=== PATIENT | male | born 1980 | race Caucasian/White ===

== ENCOUNTER 2020-07-28 09:51 | Emergency (ER) | payer BC, SELFPAY ==
[2020-07-28 10:08] VITALS: BP 118/74; PULSE 78; RESP 16; TEMP 37.1; O2SAT 98
--- NOTE | 2020-07-28 10:09 | ED.CHESTPAIN ---
HPI - Chest Pain General Chief Complaint: Chest Pain Stated Complaint: Chest pain/nerves Time Seen by Provider: 07/28/20 10:09 Source: patient and RN notes reviewed History of Present Illness HPI narrative: Patient is a 40-year-old male who presents the urgent care with complaints of chest pain since last night. Patient states that he was not doing anything out of the ordinary and denies any recent strenuous activity but believes that his pain may be muscular pain . Patient states that he was told by friends to get it checked out due to his uncle passing away from several heart attacks at the age of 39. Patient denies of any personal history of chest pain. Denies of any shortness of breath. Patient does appear to be very anxious and does admit to having a history of ADHD and anxiety but [facility] . Patient is currently not being treated for either the ADHD or his anxiety. Patient denies any palpitations. Denies any B recent illness or sickness. Denies of any use of illicit drugs or alcohol. States that he took ibuprofen for the pain. No other acute complaints. No acute distress noted. Patient read the plan of care. Review of Systems Review of Systems: Narrative: CONSTITUTIONAL: Denies fever, chills, or sweats. EYES: Denies visual changes, redness, or discharge. ENT: Denies rhinorrhea, congestion, sore throat, or otalgia. CARDIOVASCULAR: Reports of chest pain without palpitations RESPIRATORY: Denies cough or dyspnea. GASTROINTESTINAL: Denies abdominal pain, nausea, vomiting, or diarrhea. GENITOURINARY: Denies dysuria or hematuria. SKIN: Denies rash or itching. MUSCULOSKELETAL: Denies back pain, joint pain, or myalgia. NEUROLOGIC: Denies headache, numbness, or weakness. All other systems reviewed are negative, except as documented in HPI. PMFSH Social History Social History Gender identity (if verbalized by the patient): Male Comments At the time of my signature, I reviewed and agree with the nursing past medical, surgical, social, and family history. There is no relevant family history pertinent to the patient complaint. Exam Narrative: Exam Narrative: GENERAL: This is a well-nourished, well-developed patient, appears extremely anxious HEAD: normocephalic, atraumatic. EYES: PERRL. Sclera clear/white. Vision is grossly intact. EARS: External ears normal NOSE: External nose normal with no obvious nasal discharge, nares without redness, no rhinorrhea. THROAT: Mucous membranes moist NECK: Neck supple CARDIOVASCULAR: Regular rate and rhythm without murmurs, gallops, or rubs. Pain not exacerbated with palpitation RESPIRATORY: Clear to auscultation. Breath sounds equal bilaterally. No wheezes, rales, or rhonchi. SKIN: warm, intact with no suspicious lesions or rash, good texture and turgor. NEURO: awake, alert, and oriented to person, place and time. There were no obvious focal neurologic abnormalities. EXTREMITIES: No clubbing, cyanosis, or edema. Course Vital Signs Vital signs: Vital Signs Temperature 98.7 F 07/28/20 10:08 Pulse Rate 78 07/28/20 10:08 Respiratory Rate 16 07/28/20 10:08 Blood Pressure 118/74 07/28/20 10:08 Pulse Oximetry 98 07/28/20 10:08 Temperature 98.7 F 07/28/20 10:08 Pulse Rate 78 07/28/20 10:08 Respiratory Rate 16 07/28/20 10:08 Blood Pressure 118/74 07/28/20 10:08 Pulse Oximetry 98 07/28/20 10:08 Reviewed MDM - Chest Pain MDM Narrative Medical decision making narrative: Reviewed EKG results with the patient. EKG appears to be normal without any acute abnormality. However discussed with the patient that we are unable to rule out any cardiac event due to inability to draw cardiac enzymes. Therefore patient will sign out AGAINST MEDICAL ADVICE. Advised the patient that if he has any increase in episodes, persistent chest pain, changes in pain or increase symptoms such as shortness of breath?go directly to the emergency room. Re
--- NOTE | 2020-07-28 10:20 | ECG_ITS ---
Measurements Intervals [place] Rate: 68 P: 29 WA: 149 QRS: 23 QRSD: 96 T: 67 QT: 366 QTc: 390 Interpretive Statements SINUS RHYTHM INCOMPLETE RIGHT BUNDLE BRANCH BLOCK BORDERLINE ECG Electronically Signed On 07-28-2020 11:11:35 CDT by Chemo Mir D.O.
== END 2020-07-28 10:28 | disposition left against medical advice (07) ==
PROVIDERS: Emergency Provider Nurse Practitioner Family
DX: R07.89 Other chest pain (principal); F41.9 Anxiety disorder, unspecified
CPT/HCPCS: 93005; 99213; G0463